=== PATIENT | male | born 1995 | race Caucasian/White ===

== ENCOUNTER 2019-10-24 15:41 | Inpatient (IN) | payer MEDICAID ==
[~2019-10-24] VITALS: Ht 165.1 cm; Wt 79.0 kg
[2019-10-24 16:12] LABS: BASOPHILS % (AUTO) 1.1 % (0.0-2.0); EOSINOPHILS % (AUTO) 1.4 % (1.0-6.0); HEMATOCRIT 42.7 % (41-53); HEMOGLOBIN 14.4 g/dL (13.5-17.5); LYMPHOCYTES # (AUTO) 1.6 K/uL (1.0-4.8); LYMPHOCYTES % (AUTO) 20.8 % (22.0-44.0); MEAN CORPUSCULAR HEMOGLOBIN 29.2 pg (26.0-34.0); MEAN CORPUSCULAR HGB CONC 33.7 G/dL (31.0-37.0); MEAN CORPUSCULAR VOLUME 87 fL (80-100); MONOCYTES # (AUTO) 0.7 K/uL (0.1-1.0); MONOCYTES % (AUTO) 8.9 % (2.0-9.0); NEUTROPHILS # (AUTO) 5.1 K/uL (1.8-7.7); NEUTROPHILS % (AUTO) 67.8 % (40.0-70.0); PLATELET COUNT (AUTO) 287 K/uL (150-450); RED BLOOD CELL COUNT(AUTO) 4.94 MIL/uL (4.50-5.90); RED CELL DISTRIBUTION WIDTH 13.6 % (11.5-14.5)
[2019-10-24 16:22] LABS: ANION GAP 4 mmol/L (8-16); CALCIUM, TOTAL 8.9 mg/dL (8.8-10.5); CARBON DIOXIDE 30 mmol/L (22-29); CHLORIDE 103 mmol/L (98-107); CREATININE 0.98 mg/dL (0.60-1.30); GLOMERULAR FILTR. RATE CALC > 60 mL/min (>60); GLUCOSE,RANDOM 104 mg/dL (70-110); POTASSIUM 3.8 mmol/L (3.5-5.1); SODIUM SERUM 137 mmol/L (136-145); UREA NITROGEN, BLOOD 26 mg/dL (7-18)
[2019-10-24 16:29] LABS: ALANINE AMINOTRANSFERASE 30 U/L (12-78); ALBUMIN 3.7 g/dL (3.4-5.0); ALKALINE PHOSPHATASE 73 U/L (46-116); ASPARTATE AMINOTRANSFERASE 27 U/L (15-37); BILIRUBIN,TOTAL 0.8 mg/dL (0.1-1.0); TOTAL PROTEIN, SERUM 7.2 g/dL (6.4-8.2)
[2019-10-24] MEDS ORDERED: OLANZapine 5 MG TABLET PO ONE (18:30)
[2019-10-24 18:59] LABS: AMPHET/METH SCREEN,URINE NEGATIVE (NEGATIVE); BARBITURATE SCREEN, URINE NEGATIVE (NEGATIVE); BENZODIAZEPINES SCREEN,URINE NEGATIVE (NEGATIVE); CANNABINOID SCREEN,URINE NEGATIVE (NEGATIVE); COCAINE SCREEN,URINE NEGATIVE (NEGATIVE); METHADONE SCREEN, URINE NEGATIVE (NEGATIVE); OPIATE SCREEN,URINE NEGATIVE (NEGATIVE); PHENCYCLIDINE SCREEN,URINE NEGATIVE (NEGATIVE)
[2019-10-25 01:24] VITALS: BP 104/64
[2019-10-25] MEDS: ZOLPIDEM TARTRATE 10 MG TABLET PO PRN (01:55)
[2019-10-25] MEDS ORDERED: ALBUTEROL SULFATE HFA 90 MCG/PUFF 8 GM INHALER IH PRN (07:30)
[2019-10-25] MEDS ORDERED: CloNIDine HCL 0.1 MG TABLET PO PRN (07:30)
[2019-10-25] MEDS ORDERED: ONDANSETRON HCL 4 MG TABLET PO PRN (07:30)
[2019-10-25] MEDS ORDERED: MAGNESIUM HYDROXIDE SUSPENSION 30 ML UDCUP PO PRN (07:30)
[2019-10-25] MEDS ORDERED: DOCUSATE SODIUM 100 MG CAPSULE PO PRN (07:30)
[2019-10-25] MEDS ORDERED: PETROLATUM,WHITE 28 GM JELLY TP PRN (07:30)
[2019-10-25] MEDS ORDERED: NICOTINE 14 MG/24 HOUR PATCH TD PRN (07:30)
[2019-10-25] MEDS ORDERED: GuaiFENesin/D-METHORPHAN [SUGAR-FREE] 200-20MG/10 ML SYRUP UDCUP PO PRN (07:30)
[2019-10-25] MEDS ORDERED: MAG HYDROX/AL HYDROX/SIMETH ES 30 ML SUSPENSION UDCUP PO PRN (07:30)
[2019-10-25 08:18] VITALS: BP 143/77
[2019-10-25 08:30] LABS: CHOL/HDL RATIO 4.6 (4.2-7.3)
[2019-10-25] MEDS: LORazepam 2 MG TABLET PO PRN (08:46)
[2019-10-25] MEDS: OLANZapine 5 MG RAPDIS TABLET PO PRN (08:46)
[2019-10-25 16:05] VITALS: BP 106/76
[2019-10-25] MEDS: OLANZapine 5 MG TABLET PO SCH (17:19)
[2019-10-26 01:25] VITALS: BP 128/77
[2019-10-26] MEDS: ZOLPIDEM TARTRATE 10 MG TABLET PO PRN ×2 (01:30→20:02)
[2019-10-26] MEDS: IBUPROFEN 400 MG TABLET PO PRN (01:30)
[2019-10-26] MEDS: LORazepam 2 MG TABLET PO PRN ×3 (04:18→18:31)
[2019-10-26 08:46] VITALS: BP 114/60
[2019-10-26] MEDS: OLANZapine 5 MG TABLET PO SCH ×2 (08:49→16:21)
[2019-10-26 18:05] VITALS: BP 112/73
[2019-10-27 02:16] VITALS: BP 121/78
[2019-10-27] MEDS: LORazepam 2 MG TABLET PO PRN ×2 (02:23→12:04)
[2019-10-27] MEDS: OLANZapine 5 MG TABLET PO SCH ×2 (08:00→16:49)
[2019-10-27 08:03] VITALS: BP 117/74
[2019-10-27] MEDS: OLANZapine 5 MG RAPDIS TABLET PO PRN (12:04)
[2019-10-27 16:06] VITALS: BP 117/61
[2019-10-28 01:08] VITALS: BP 116/78
[2019-10-28] MEDS: ZOLPIDEM TARTRATE 10 MG TABLET PO PRN (01:16)
[2019-10-28 04:44] VITALS: BP 120/82
[2019-10-28] MEDS: IBUPROFEN 400 MG TABLET PO PRN (04:56)
[2019-10-28] MEDS: LOPERAMIDE HCL 2 MG CAPSULE PO PRN (05:22)
[2019-10-28 08:09] VITALS: BP 129/76
[2019-10-28] MEDS: LORazepam 2 MG TABLET PO PRN ×2 (08:16→16:08)
[2019-10-28] MEDS: OLANZapine 5 MG TABLET PO SCH ×2 (08:16→16:09)
[2019-10-28 16:04] VITALS: BP 122/80
[2019-10-28] MEDS: ACETAMINOPHEN 325 MG TABLET PO PRN (16:09)
[2019-10-29 01:40] VITALS: BP 117/57
[2019-10-29 03:40] VITALS: BP 120/68
[2019-10-29] MEDS: LORazepam 2 MG TABLET PO PRN ×2 (03:42→17:04)
[2019-10-29 08:34] VITALS: BP 118/69
[2019-10-29] MEDS: OLANZapine 5 MG TABLET PO SCH ×2 (10:32→15:52)
[2019-10-29] MEDS: IBUPROFEN 400 MG TABLET PO PRN (15:52)
[2019-10-29 16:01] VITALS: BP 122/76
[2019-10-29] MEDS: ZOLPIDEM TARTRATE 10 MG TABLET PO PRN (21:20)
[2019-10-30 00:46] VITALS: BP 105/65
[2019-10-30 06:14] VITALS: BP 135/94
[2019-10-30] MEDS: IBUPROFEN 400 MG TABLET PO PRN ×2 (06:28→15:53)
[2019-10-30 08:07] VITALS: BP 122/65
[2019-10-30] MEDS: OLANZapine 5 MG TABLET PO SCH ×2 (08:23→15:53)
[2019-10-30] MEDS: LORazepam 2 MG TABLET PO PRN ×2 (09:50→15:54)
[2019-10-30 16:02] VITALS: BP 116/77
[2019-10-31 00:24] VITALS: BP 111/62
[2019-10-31 08:08] VITALS: BP 127/80
[2019-10-31] MEDS: OLANZapine 5 MG TABLET PO SCH ×2 (08:32→16:21)
[2019-10-31] MEDS: LORazepam 2 MG TABLET PO PRN ×2 (11:02→17:23)
[2019-10-31 16:23] VITALS: BP 115/68
[2019-11-01 00:08] VITALS: BP 109/63
[2019-11-01 08:12] VITALS: BP 133/65
[2019-11-01] MEDS: OLANZapine 5 MG TABLET PO SCH ×2 (08:52→16:24)
[2019-11-01] MEDS: LORazepam 2 MG TABLET PO PRN (13:06)
[2019-11-01 16:08] VITALS: BP 120/76
[2019-11-02 00:39] VITALS: BP 102/67
[2019-11-02] MEDS: LORazepam 2 MG TABLET PO PRN (06:23)
[2019-11-02 08:10] VITALS: BP 117/64
[2019-11-02] MEDS: OLANZapine 5 MG TABLET PO SCH ×2 (08:21→16:04)
[2019-11-02 16:17] VITALS: BP 119/77
[2019-11-03 01:24] VITALS: BP 102/74
[2019-11-03] MEDS: ZOLPIDEM TARTRATE 10 MG TABLET PO PRN (01:30)
[2019-11-03 08:24] VITALS: BP 115/61
[2019-11-03] MEDS: OLANZapine 5 MG TABLET PO SCH ×2 (08:24→16:20)
[2019-11-03] MEDS: ACETAMINOPHEN 325 MG TABLET PO PRN (08:24)
[2019-11-03] MEDS: LORazepam 2 MG TABLET PO PRN (12:45)
[2019-11-03 16:01] VITALS: BP 118/78
[2019-11-04 01:29] VITALS: BP 126/77
[2019-11-04] MEDS: OLANZapine 5 MG RAPDIS TABLET PO PRN (06:54)
[2019-11-04] MEDS ORDERED: ZOLPIDEM TARTRATE 10 MG TABLET PO PRN (08:00)
[2019-11-04] MEDS: LORazepam 2 MG TABLET PO PRN (08:31)
[2019-11-04 08:52] VITALS: BP 119/70
[2019-11-04] MEDS: OLANZapine 5 MG TABLET PO SCH ×2 (10:04→16:33)
[2019-11-04 16:02] VITALS: BP 102/60
[2019-11-05 05:34] VITALS: BP 102/61
[2019-11-05] MEDS: OLANZapine 5 MG TABLET PO SCH ×2 (08:06→16:26)
[2019-11-05 08:16] VITALS: BP 141/77
[2019-11-05] MEDS: LOPERAMIDE HCL 2 MG CAPSULE PO PRN (10:28)
[2019-11-05] MEDS: LORazepam 2 MG TABLET PO PRN (11:42)
[2019-11-05] MEDS: OLANZapine 5 MG RAPDIS TABLET PO PRN (14:33)
[2019-11-05 16:07] VITALS: BP 119/70
[2019-11-06 05:30] VITALS: BP 105/59
[2019-11-06 08:09] VITALS: BP 123/77
[2019-11-06] MEDS: LORazepam 2 MG TABLET PO PRN (08:09)
[2019-11-06] MEDS: OLANZapine 5 MG TABLET PO SCH ×2 (08:09→16:25)
[2019-11-06 16:17] VITALS: BP 110/60
[2019-11-07 06:41] VITALS: BP 116/71
[2019-11-07 08:05] VITALS: BP 122/77
[2019-11-07] MEDS: LORazepam 2 MG TABLET PO PRN (08:12)
[2019-11-07] MEDS: OLANZapine 5 MG TABLET PO SCH ×2 (08:12→16:06)
[2019-11-07 16:10] VITALS: BP 113/70
[2019-11-08 05:35] VITALS: BP 102/60
[2019-11-08 08:22] VITALS: BP 129/87
[2019-11-08] MEDS: OLANZapine 5 MG TABLET PO SCH (08:40)
[2019-11-08] MEDS ORDERED: OLANZapine 10 MG TABLET PO SCH (09:00)
[2019-11-08] MEDS: OLANZapine 5 MG RAPDIS TABLET PO PRN (10:29)
[2019-11-08 16:03] VITALS: BP 115/71
[2019-11-08] MEDS: OLANZapine 10 MG TABLET PO SCH (16:23)
[2019-11-09 02:51] VITALS: BP 100/68
[2019-11-09] MEDS: OLANZapine 10 MG TABLET PO SCH (08:37)
[2019-11-09 08:45] VITALS: BP 136/65
[2019-11-09] MEDS ORDERED: OLAN10TA3 PO (10:23)
== END 2019-11-09 13:15 | disposition left against medical advice (07) | DRG 750 ==
LOC: EMS 15:43 → B2S 19:36
PROVIDERS: ADMIT Psychiatry & Neurology Child & Adolescent Psychiatry; ATTEND Psychiatry & Neurology Child & Adolescent Psychiatry
DX: F25.0 Schizoaffective disorder, bipolar type (principal); G47.00 Insomnia, unspecified; K59.00 Constipation, unspecified; R45.851 Suicidal ideations; Z20.828 Contact with and (suspected) exposure to other viral communicable diseases; R03.0 Elevated blood-pressure reading, without diagnosis of hypertension; Z72.89 Other problems related to lifestyle
CPT/HCPCS: 87081; 87426; G0480